=== PATIENT | male | born 1975 | race Caucasian/White ===

== ENCOUNTER → 2025-01-05 09:41 | Outpatient (BNVA) | payer OTHER, SELFPAY | PROVIDERS: Visit Provider Student in an Organized Health Care Education/Training Program | DX: M67.431 Ganglion, right wrist (principal) | CPT/HCPCS: 99203 ==

== ENCOUNTER → 2025-01-20 09:49 | Outpatient (BNVA) | payer OTHER, SELFPAY | PROVIDERS: Visit Provider Nurse Practitioner Family | DX: D22.5 Melanocytic nevi of trunk (principal); L81.4 Other melanin hyperpigmentation; L72.0 Epidermal cyst; L82.1 Other seborrheic keratosis | CPT/HCPCS: 99203 ==

== ENCOUNTER → 2025-02-01 08:28 | Outpatient (BNVA) | payer OTHER, SELFPAY | PROVIDERS: Visit Provider Surgery | DX: Z12.11 Encounter for screening for malignant neoplasm of colon (principal) | CPT/HCPCS: 99204 ==

== ENCOUNTER 2025-03-24 05:45 | Day surgery (SDC) | payer OTHER, SELFPAY ==
--- NOTE | 2025-03-24 05:53 | W.PM.OPSFHP ---
Same Day Surgery H&P Indication for Procedure/HPI DATE OF PROCEDURE: March 24, 2025 CHIEF COMPLAINT/INDICATIONFOR SURGICAL PROCEDURE: need for screening colonoscopy PREOP DIAGNOSIS: colon cancer screening and GERD PLANNED PROCEDURE: Operation Date: 03/24/25 07:00 Proposed Procedures p EGD 24984, 76133, G0121, K21.9, Z12.11(Not Applicable) - Stuart Beal MD s Colonoscopy(Not Applicable) - Stuart Beal MD Medications/Allergies* Home Medications ?Medication ?Instructions ?Recorded ?Confirmed ?Type cyclobenzaprine 10 mg tablet 10 mg PO DAILY 01/05/25 03/21/25 History hydroxyzine HCl 10 mg tablet 10 mg PO BID PRN Anxiety 01/05/25 03/21/25 History meloxicam 15 mg tablet 15 mg PO DAILY 01/05/25 03/21/25 History multivitamin 1 tab PO DAILY 01/05/25 03/21/25 History omeprazole 20 mg capsule,delayed 20 mg PO BID 01/05/25 03/21/25 History release oxybutynin chloride 5 mg tablet 5 mg PO DAILY 01/05/25 03/21/25 History sertraline 100 mg tablet 100 mg PO DAILY 01/05/25 03/21/25 History trazodone 50 mg tablet 25 mg PO DAILY 01/05/25 03/21/25 History Allergies/Adverse Reactions Allergy/AdvReac Type Severity Reaction Status Date / Time No Known Allergies Allergy Verified 03/21/25 10:34 Pertinent History/Comorbid Conditions* Social History Smoking and tobacco/nicotine status: current every day tobacco/nicotine user Pertinent Exam Findings alert, oriented x 3, clear to auscultation bilaterally and regular rate & rhythm Recommendations Surgery/Procedure today Coding Level of Care Code Acute Code for Chg Fwd
[2025-03-24 06:01] VITALS: BP 112/89; PULSE 101; RESP 18; TEMP 36.6; O2SAT 95; BMI 23.3
[2025-03-24] MEDS: sodium chloride 0.9% 1,000 ML 15 ML IV (06:09)
--- NOTE | 2025-03-24 06:20 | ANES.PREANE2 ---
Pre-Anesthetic Assessment Height/Weight: Height 1.68 m Weight 65.771 kg Temp Pulse Resp BP Pulse Ox O2 Del Method 97.9 F 101 H 18 112/89 95 Room Air 03/24/25 06:01 03/24/25 06:01 03/24/25 06:01 03/24/25 06:01 03/24/25 06:01 03/24/25 06:01 Preop Diagnosis: colon cancer screening and GERD Operation Date: 03/24/25 07:00 Proposed Procedures p EGD 98781, 40336, G0121, K21.9, Z12.11(Not Applicable) - Stuart Beal MD s Colonoscopy(Not Applicable) - Stuart Beal MD Familial anesthetic complications: None Was Beta Ashley taken within 24 hours: N/A Was Clonidine taken within 24 hours: N/A Last intake: Intake Last Liquid Date 03/23/25 Last Liquid Time 21:00 Last Solid Date 03/22/25 Social Tobacco 0.5, marijuana daily pack(s) per day Exam alert, oriented x 3, clear to auscultation bilaterally and regular rate & rhythm Airway Submandibular: within normal limits Cervical ROM: within normal limits Mallampati: Class II Dentition: full History/ROS No significant history except as noted and No significant complaints Pulmonary None reported CV/HEM None reported None reported Hepatic None reported GI Gastroesophageal Reflux Disease Metabolic None reported Musc/skel Lower Back Pain, Osteoarthritis/DJD and Weakness (Legs,sciatica) Neuropsych Neuropathy PTSD Anesthetic Plan ASA status: 2 Anesthesia: Anesthesia Evaluation, General and MAC Risk of > 500 ml blood loss (7ml/kg in children): No Medications/Allergies Home Medications ?Medication ?Instructions ?Recorded ?Confirmed ?Last Taken ?Type cyclobenzaprine 10 mg tablet 10 mg PO DAILY 01/05/25 03/24/25 03/23/25 History diclofenac sodium 1 % topical gel 4 g topical QID #100 grams 01/05/25 03/24/25 03/23/25 Rx (Voltaren Arthritis Pain) hydroxyzine HCl 10 mg tablet 10 mg PO BID PRN Anxiety 01/05/25 03/24/25 03/23/25 History meloxicam 15 mg tablet 15 mg PO DAILY 01/05/25 03/24/25 03/23/25 History multivitamin 1 tab PO DAILY 01/05/25 03/24/25 03/23/25 History omeprazole 20 mg capsule,delayed 20 mg PO BID 01/05/25 03/24/25 03/23/25 History release oxybutynin chloride 5 mg tablet 5 mg PO DAILY 01/05/25 03/24/25 03/23/25 History sertraline 100 mg tablet 100 mg PO DAILY 01/05/25 03/24/25 03/23/25 History trazodone 50 mg tablet 25 mg PO DAILY 01/05/25 03/24/25 03/23/25 History Allergies Allergy/AdvReac Type Severity Reaction Status Date / Time No Known Allergies Allergy Verified 03/24/25 06:10 Current Medications Generic Name Dose Route Start Last Admin Trade Name Freq PRN Reason Stop Dose Admin Sodium Chloride 1,000 mls @ 15 mls/hr 03/24/25 05:52 03/24/25 06:09 Sodium Chloride 0.9% IV 03/25/25 05:51 15 mls/hr .Q24H PRN Administration COLONOSCOPY FLUIDS PFSH Anesthesia Social History Smoking and tobacco/nicotine status: current every day tobacco/nicotine user Data Anesthesia Cardiac Studies: No Data to Display
[2025-03-24 07:36] VITALS: BP 100/72; PULSE 98; RESP 14; TEMP 36.2; O2SAT 98
[2025-03-24 07:50] VITALS: BP 112/87; PULSE 100; RESP 16; O2SAT 94
[2025-03-24 08:10] VITALS: BP 113/87; PULSE 100; RESP 16; O2SAT 96
--- NOTE | 2025-03-24 08:11 | ANE.PACU2 ---
Inpatient post-anesthesia follow up: Airway intact: Yes Vital signs: Temperature 97.2 F Pulse Rate 100 Respiratory Rate 16 Blood Pressure 113/87 Pulse Oximetry 96 Oxygen Delivery Me thod Room Air Oxygen Flow Rate Fraction of Inspir ed Oxygen Hydration adequate: Yes Nausea and vomiting: No Pain level: 1 Mental status: Baseline
== END 2025-03-24 08:11 | disposition home or self-care (01) ==
PROVIDERS: PCP Nurse Practitioner Family; Visit Provider Surgery
PROC: 0DJ08ZZ Inspection of Upper Intestinal Tract, Via Natural or Artificial Opening Endoscopic (ICD-10-PCS; principal; 2025-03-24 07:00)
PROC: 0DJD8ZZ Inspection of Lower Intestinal Tract, Via Natural or Artificial Opening Endoscopic (ICD-10-PCS; CPT 45378; 2025-03-24 07:00)
DX: Z12.11 Encounter for screening for malignant neoplasm of colon (principal); K29.50 Unspecified chronic gastritis without bleeding; K22.70 Barrett's esophagus without dysplasia; K21.9 Gastro-esophageal reflux disease without esophagitis; F17.200 Nicotine dependence, unspecified, uncomplicated; Z79.899 Other long term (current) drug therapy
CPT/HCPCS: 43239; 45378; 88305; 88342; J2250; J2704; J3490; J7030

== ENCOUNTER → 2025-04-05 13:50 | Outpatient (BNVA) | payer OTHER, SELFPAY | PROVIDERS: PCP Nurse Practitioner Family; Visit Provider Surgery | DX: Z09 Encounter for follow-up examination after completed treatment for conditions other than malignant neoplasm (principal) | CPT/HCPCS: 99213 ==